=== PATIENT | female | born 1970 | race Caucasian/White ===

== ENCOUNTER 2016-08-15 08:00 | Observation (INO) | payer OTHER ==
[2016-08-14 13:59] VITALS: BMI 40.4
[2016-08-15] VITALS (24 sets, daily range): BP systolic 102–139; BP diastolic 53–98; PULSE 56–76; RESP 14–20; Ht 165.1 cm; Wt 109.0 kg
[~2016-08-15] VITALS: Ht 165.1 cm; Wt 109.0 kg
[~2016-08-15 08:00] MED LIST: CEFAZOLIN 1 GM INJ ONE
[2016-08-15] MEDS ORDERED: METF1000 PO (08:16)
[2016-08-15] MEDS ORDERED: CEFAZOLIN 2 GM/50 ML (PMX) 50 ML IVPB ONE (09:00)
[2016-08-15] MEDS: SOD CHLORIDE 0.9% 1,000 ML IV SCH (09:00)
[2016-08-15 09:32] LABS: ADD SCAN DIFF NO
--- NOTE | 2016-08-15 09:33 | RADRPT ---
PROCEDURE: XR Chest. CLINICAL INDICATION: Preoperative TECHNIQUE: Single frontal view of the chest was obtained COMPARISON: None FINDINGS: The heart and mediastinum are within normal limits. The lungs are clear. There is mild elevation of the right diaphragm. There is no pleural effusion or pneumothorax. RPTAT: AA IMPRESSION: No acute disease. .Henrique Cheng MD, MD Date Time Electronically viewed and signed by .Henrique Cheng MD, on 08/15/2016 09:33 .S/
[2016-08-15 09:41] LABS: BASOPHILS % 0.5 % (0.0-2.0); EOSINOPHILS # 0.1 10^3/ul (0.0-0.5); EOSINOPHILS % 1.8 % (0.0-7.0); HEMATOCRIT 35.7 % (37.0-47.0); HEMOGLOBIN 11.1 g/dl (12.0-16.0); LYMPHOCYTES # 2.2 10^3/ul (0.8-2.9); LYMPHOCYTES % 30.7 % (15.0-51.0); MEAN CORPUSCULAR HEMOGLOBIN 25.5 pg (29.0-33.0); MEAN CORPUSCULAR HGB CONC 31.1 g/dl (32.0-37.0); MEAN CORPUSCULAR VOLUME 82.1 fl (82.0-101.0); MEAN PLATELET VOLUME 10.7 fl (7.4-10.4); MONOCYTE # 0.5 10^3/ul (0.3-0.9); NEUTROPHIL # 4.4 10^3/ul (1.6-7.5); NEUTROPHILS % 59.7 % (39.0-77.0); PLATELET COUNT 336 10^3/UL (140-415); RED BLOOD COUNT 4.35 10^6/ul (4.20-5.40); RED CELL DISTRIBUTION WIDTH 15.1 % (11.5-14.5); WHITE BLOOD COUNT 7.3 10^3/ul (4.8-10.8)
[2016-08-15 09:48] LABS: INR 0.97; PROTIME 12.9 Sec (12.2-14.2)
[2016-08-15 09:49] LABS: PARTIAL THROMBOPLASTIN TIME 34.3 Sec (25.0-35.0)
[2016-08-15 09:53] LABS: POTASSIUM 3.9 mmol/L (3.5-5.1)
[2016-08-15 10:00] LABS: CALCIUM 9.2 mg/dl (8.4-10.2); CREATININE 0.49 mg/dl (0.44-1.00)
[2016-08-15] MEDS ORDERED: ISOSULFAN BLUE 1% 5 ML INJ SC ONE (10:58)
[2016-08-15] MEDS ORDERED: FENTAnyl 50 MCG/ML VIAL ONE (11:15)
[2016-08-15] MEDS ORDERED: GLYCOPYRROLATE 0.4 MG INJ ONE (11:41)
[2016-08-15] MEDS ORDERED: ROCURONIUM 50 MG INJ ONE (11:42)
[2016-08-15] MEDS ORDERED: NEOSTIGMINE 3 MG/3 ML SYRINGE ONE (11:42)
[2016-08-15] MEDS ORDERED: SUCCINYLCHOLINE CHLORIDE 100 MG/5 ML SYG IV ONE (11:42)
[2016-08-15] MEDS ORDERED: PROPOFOL 40 ML ONE (11:42)
[2016-08-15] MEDS ORDERED: LIDOCAINE 2% (SDV) 5 ML INJ ONE (11:42)
[2016-08-15] MEDS ORDERED: DIPHENHYDRAMINE 50 MG INJ IV PRN (12:00)
[2016-08-15] MEDS ORDERED: HYDROmorphONE (0.2 MG/ML) 10ML SYG IV PRN ×2 (12:00)
[2016-08-15] MEDS ORDERED: ONDANSETRON 4 MG INJ IV PRN ×2 (12:00→13:30)
[2016-08-15] MEDS ORDERED: METOCLOPRAMIDE 10 MG INJ IV PRN (12:00)
[2016-08-15] MEDS ORDERED: hydrALAzine 20 MG INJ ONE (12:12)
[2016-08-15] MEDS: MEPERIDINE 25 MG INJ IV PRN ×2 (13:09→13:16)
[2016-08-15] MEDS: FENTAnyl 50 MCG/ML VIAL IV PRN ×4 (13:10→13:33)
--- NOTE | 2016-08-15 13:17 | OPR ---
DATE OF OPERATION: 08/15/2016 PREOPERATIVE DIAGNOSIS: Invasive cancer, left breast. POSTOPERATIVE DIAGNOSIS: Invasive cancer, left breast. OPERATION PERFORMED: Needle-directed left partial mastectomy and axillary dissection utilizing sent inel lymph node technique. ANESTHESIA: General. ANESTHESIOLOGIST: Dr. Rodriguez. SURGEON: Edgar Moore MD ASSISTANTS: Dr. Johnson and Tyrone Danielle MD INDICATIONS FOR PROCEDURE: The patient is a 45-year-old female who underwent surveillance mammograp hy and was found to have suspicious lesion in her left breast. Subsequent workup including ultrasou nd and biopsy revealed an invasive cancer. Tumor markers revealed it was ER positive but MO, and HE R-2 negative. The patient was counseled as to need for surgery. She consented and was scheduled fo r surgery. DESCRIPTION OF PROCEDURE: On the morning of surgery, the patient presented to [facility] where she underwent localization of the lesion performed by attending radiologis t, Dr. Marla Morris. Subsequently, she was brought to the operating theater, placed under genera l endotracheal tube anesthesia. The left breast and axillary region were prepped and draped in the usual sterile fashion. The previously placed localization wire was in the upper outer quadrant of t he left breast. Approximately 4 mL of 1% Lymphazurin blue dye were injected peritumorally. The xenia ast was gently massaged for approximately 10 minutes. Subsequently, a 3 to 4 cm incision was made i n the left axillary hairline. Subcutaneous tissue was dissected with cautery down through the clavi pectoral fascia. A dye-stained lymphatic was identified and traced to an enlarged lymph node. Ther e were additional enlarged nodes in this area. Therefore, decision was made to perform a level 1 di ssection with blunt dissection along the chest wall. The long thoracic nerve was identified and kep t out of harm's way. More superiorly, the axillary vein and thoracodorsal neurovascular bundle were identified and kept out of harm's way. Node bearing tissue between the long thoracic nerve and tho racodorsal nerve was meticulously harvested using the LigaSure device. Specimen was removed. The s entinel lymph node was marked with a suture and attending pathologist, Dr. Wilton Roca and perfo rmed intraoperative cytology which was negative for definite malignancy. There were several additio nal lymph nodes in the specimen. Dr. Moore made the decision that it was not indicated to attempt t o remove more tissue. Therefore, the wound was irrigated. Minimal bleeding was controlled with cau sarah. A #10 flat Shivam-Livingston drain was then placed through the left mid axillary line. It was cu t to size and laid within the axilla. The drain was sewn in place with 2-0 nylon suture in the mari dard fashion and the skin was reapproximated with a 4-0 Vicryl suture in subcuticular fashion. Attention was then directed to performing the partial mastectomy. A curvilinear incision was made i n the upper outer quadrant in the region of the previously placed localization wire. Subcutaneous t issue was dissected with cautery. The skin edges were elevated with skin hooks and wide circumferen tial dissection of the tissue associated with the wire then took place, taking great care to ensure adequate margin. Specimen was then elevated, transected, oriented, and sent for radiographic confir mation of capture. Capture was confirmed. Specimen was then sent for permanent pathologic analysis . The wound was irrigated. Minimal bleeding was controlled with cautery, and the skin was then alfonso sed with a deep dermal layer of 4-0 Vicryl sutures, followed by final skin approximation with 5-0 PD S in subcuticular fashion. Benzoin and Steri-Strips were applied. Patient tolerated the procedure well. The estimated blood loss was approximately 30 mL. There were no complications and the patien t was transported in stable condition to the recovery room where circumferential compression dressin g was applied. Dictated By: EDGAR MOORE MD TL/MARTHA Conf#: [id number] DID#: [id number] CC: Marla Morris MD;*EndCC*
[2016-08-15] MEDS ORDERED: D5W-0.45 NACL + KCL 20 MEQ 1,000 ML IV SCH (13:30)
[2016-08-15] MEDS ORDERED: morphine 2 MG INJ IV PRN (13:30)
[2016-08-15] MEDS ORDERED: GLUCOSE GEL 15 GRAM TUBE PO PRN ×2 (17:00)
[2016-08-15] MEDS ORDERED: DEXTROSE 50% 50 ML SYRINGE IV PRN ×2 (17:00)
[2016-08-15] MEDS ORDERED: GLUCAGON 1 MG INJ IM PRN (17:00)
[2016-08-15] MEDS ORDERED: GLUCOSE GEL 15 GRAM TUBE BUCCAL PRN (17:00)
--- NOTE | 2016-08-15 17:27 | HP ---
DATE OF ADMISSION: 08/15/2016 CHIEF COMPLAINT AND HISTORY OF PRESENT ILLNESS: The patient is a 45-year-old female with history o f diabetes type 2 was noted to have a suspicious lesion, left breast on screening mammography and fajardo bsequent biopsy revealed invasive cancers. The patient was seen by Dr. Moore as an outpatient and b rought into hospital and underwent left partial mastectomy and axillary dissection. The patient did have significant postoperative pain; therefore, patient is being admitted for further evaluation an d management. The patient denies any headache, dizziness, syncope. No history of cough. No histo ry of shortness of breath, no history of abdominal pain, nausea, vomiting, or diarrhea. No history of dysuria or hematuria, no history of acute joint pain or any skin rash. No history of focal weak ness. REVIEW OF SYSTEMS: Rest of review of systems unremarkable. PAST MEDICAL HISTORY: As stated above. SOCIAL HISTORY: No smoking, no alcohol. FAMILY HISTORY: Positive for breast cancer in her sister. MEDICATIONS PRIOR TO ADMISSION: Metformin 1000 mg twice a day. PAST SURGICAL HISTORY: Status post right shoulder surgery, details not available. PHYSICAL EXAMINATION: GENERAL: The patient is conscious, awake, alert, fairly oriented. VITAL SIGNS: Temperature 97.9, pulse 60, blood pressure 115/60, O2 saturation 97% on 2 liters nasal cannula, respirations 20. HEENT: Atraumatic, normocephalic. Conjunctivae and lids normal. Oropharynx clear. NECK: Supple. No mass, no thyromegaly. LUNGS: Clear to auscultation. CARDIOVASCULAR: S1, S2 normal. No murmur, gallop, or rub. ABDOMEN: Soft, nondistended, nontender. Bowel sounds heard. EXTREMITIES: No leg edema. Pedal pulses palpable. No clubbing, no cyanosis. NEUROLOGIC: The patient is awake, alert, fairly oriented with no gross focal deficit. LABORATORY DATA: This morning, sodium 140, potassium 3.9, BUN 10, creatinine 0.9, glucose 103, calc ium 9.2. WBC 7.3, hemoglobin 11.1, platelets 336. IMPRESSION: 1. Left breast cancer status post left partial mastectomy and axillary dissection. 2. Type 2 diabetes mellitus. PLAN: Patient admitted on medical floor. Patient will be started on clear liquid diet, which will be advanced as tolerated. Will give IV fluid and SCD for DVT prophylaxis, Tylenol, Darby and IV mor phine for pain control. We will also resume metformin and will do Accu-Chek a.c. and at bedtime wit h mild scale. If the patient continues to do well, she will be discharged home tomorrow. Dictated By: RAYMUNDO HUFFMAN/MARTHA Conf#: [id number] DID#: [id number]
[2016-08-15] MEDS: INSULIN ASPART [NOVOLOG] 3 ML PEN SC SCH ×2 (17:32→21:00)
[2016-08-15] MEDS: metFORMIN 500 MG TAB PO SCH (17:40)
[2016-08-15] MEDS: 1/2 NS + KCL 20 MEQ 1,000 ML IV SCH (17:46)
[2016-08-15] MEDS ORDERED: ACETAMINOPHEN 325 MG TAB PO PRN (18:00)
[2016-08-15] MEDS: HYDROCODONE/APAP (5/325) TAB GTB PRN (18:44)
[2016-08-16] VITALS: BP 121/70; RESP 19
[2016-08-16] MEDS ORDERED: ACCU-CHEK XX SCH (02:00)
[2016-08-16] MEDS: 1/2 NS + KCL 20 MEQ 1,000 ML IV SCH (04:18)
[2016-08-16] MEDS: HYDROCODONE/APAP (5/325) TAB GTB PRN ×3 (04:25→14:56)
[2016-08-16] MEDS: INSULIN ASPART [NOVOLOG] 3 ML PEN SC SCH ×2 (07:50→11:40)
--- NOTE | 2016-08-16 07:50 | CONS ---
Date/Time of Note Date/Time of Note DATE: 08/16/16 TIME: 07:45 Consultation Date/Type/Reason Admit Date/Time Aug 15, 2016 at 13:31 Initial Consult Date 08/16/16 Type of Consultation: Anesthesiology Reason for Consultation Anesthesia Follow up 24 HR Interval Summary Free Text/Dictation Pt seen and examined at bedside is POD #1 for Left breast partial mastectomy. Pt was admitted post-op for monitoring. Pt states she has minimal pain and is overall doing well with adequate pain control and ambulation. No N/V/D/ROSS/ Urinary incontinence. Will follow up PRN. Constitutional: improved, no complaints Exam/Review of Systems Vital Signs Vitals Vital Signs Date Time Temp Pulse Resp B/P Pulse Ox O2 Delivery O2 Flow Rate FiO2 08/16/16 00:00 98.0 73 19 121/70 97 08/15/16 17:05 Room Air 08/15/16 14:00 2.0 Intake and Output 08/15/16 08/15/16 08/16/16 15:00 23:00 07:00 Intake Total 1900 ml 300 ml 1910 ml Output Total 15 ml 744 ml Balance 1885 ml 300 ml 1166 ml Results Result Diagram: 08/15/16 0855 08/15/16 0855 Results 24 hrs Laboratory Tests Test 08/15/16 08:55 08/15/16 09:07 08/15/16 17:20 08/15/16 21:18 White Blood Count 7.3 Red Blood Count 4.35 Hemoglobin 11.1 L Hematocrit 35.7 L Mean Corpuscular Volume 82.1 Mean Corpuscular Hemoglobin 25.5 L Mean Corpuscular Hemoglobin Concent 31.1 L Red Cell Distribution Width 15.1 H Platelet Count 336 Mean Platelet Volume 10.7 H Neutrophils % 59.7 Lymphocytes % 30.7 Monocytes % 7.0 Eosinophils % 1.8 Basophils % 0.5 Nucleated Red Blood Cells % 0.0 Neutrophils # 4.4 Lymphocytes # 2.2 Monocytes # 0.5 Eosinophils # 0.1 Basophils # 0.0 Nucleated Red Blood Cells # 0.0 Prothrombin Time 12.9 Prothrombin Time Ratio 1.0 INR International Normalized Ratio 0.97 Activated Partial Thromboplast Time 34.3 Sodium Level 140 Potassium Level 3.9 Chloride Level 105 Carbon Dioxide Level 27 Anion Gap 12 Blood Urea Nitrogen 10 Creatinine 0.49 Glucose Level 103 Calcium Level 9.2 Bedside Glucose 101 107 102 Medications Medications Current Medications Morphine Sulfate (morphine) 2 mg Q1H PRN IV PAIN; Start 08/15/16 at 13:30 Ondansetron HCl 4 mg 4 mg Q4H PRN IV NAUSEA AND/OR VOMITING; Start 08/15/16 at 13:30 Potassium Chloride/Dextrose/ Sod Cl 1,000 ml @ 120 mls/hr Q8H20M IV ; Start at 13:30 Potassium Chloride/Sodium Chloride (1/2 NS + KCl 20 Meq) 1,000 ml @ 75 mls/hr [id number] IV Last administered on 08/16/16 04:18; Admin Dose 75 MLS/HR; Start at 17:00 Diagnostic Test (Pha) (Accu-Chek) 1 ea 02 XX ; Start 08/16/16 at 02:00 Miscellaneous Information 1 ea NOTE XX ; Start 08/15/16 at 17:00 Glucose (Glutose) 15 gm Q15M PRN PO DECREASED GLUCOSE; Start 08/15/16 at 17:00 Glucose (Glutose) 22.5 gm Q15M PRN PO DECREASED GLUCOSE; Start 08/15/16 at 17: 00 Dextrose (D50w Syringe) 25 ml Q15M PRN IV DECREASED GLUCOSE; Start 08/15/16 at 17:00 Dextrose (D50w Syringe) 50 ml Q15M PRN IV DECREASED GLUCOSE; Start 08/15/16 at 17:00 Glucagon (Glucagen) 1 mg Q15M PRN IM DECREASED GLUCOSE; Start 08/15/16 at 17:00 Glucose (Glutose) 15 gm Q15M PRN BUCCAL DECREASED GLUCOSE; Start 08/15/16 at 17 :00 Acetaminophen (Tylenol Tab) 650 mg Q4H PRN PO PAIN AND OR ELEVATED TEMP; Start 08/15/16 at 18:00 Acetaminophen/ Hydrocodone Bitart ([place] (5/325)) 1 tab Q4H PRN GTB PAIN LEVEL 4-6 Last administered on 08/16/16 04:25; Admin Dose 1 TAB; Start 08/15/16 at 18: 00 Influenza Virus Vaccine (Fluzone) 0.5 ml ONCE ONCE IM* ; Start 08/17/16 at 09:00 ; Stop 08/17/16 at 09:01 DELON HOPSON Aug 16, 2016 07:50
[2016-08-16 07:56] VITALS: BP 114/63; RESP 16
[2016-08-16] MEDS: SOD CHLORIDE 0.9% 1,000 ML IV SCH (09:02)
[2016-08-16] MEDS: metFORMIN 500 MG TAB PO SCH (09:03)
--- NOTE | 2016-08-16 12:45 | PN ---
Date/Time of Note Date/Time of Note DATE: 08/16/16 TIME: 12:44 Assessment/Plan VTE Prophylaxis VTE Prophylaxis Intervention: other Lines/Catheters IV Catheter Type (from Nrsg): Peripheral IV Assessment/Plan Chief Complaint/Hosp Course 1) left breast cancer - s/p mastectomy - further treatment per surgery Problems: Subjective 24 Hr Interval Summary Free Text/Dictation Patient has no complaints Exam/Review of Systems Vital Signs Vitals Vital Signs Date Time Temp Pulse Resp B/P Pulse Ox O2 Delivery O2 Flow Rate FiO2 08/16/16 07:56 97.5 56 16 114/63 100 08/15/16 17:05 Room Air 08/15/16 14:00 2.0 Intake and Output 08/15/16 08/15/16 08/16/16 15:00 23:00 07:00 Intake Total 1900 ml 300 ml 1910 ml Output Total 15 ml 744 ml Balance 1885 ml 300 ml 1166 ml Exam Constitutional: well developed Head: atraumatic, normocephalic Neck: supple Respiratory: clear to auscultation Cardiovascular: regular rate and rhythm Gastrointestinal: non-tender, soft Extremities: normal pulses Results Result Diagram: 08/15/16 0855 08/15/16 0855 Results 24 hrs Laboratory Tests Test 08/15/16 17:20 08/15/16 21:18 08/16/16 08:20 08/16/16 12:16 Bedside Glucose 107 102 87 74 Medications Medications Current Medications Morphine Sulfate (morphine) 2 mg Q1H PRN IV PAIN Last administered on 08/16/16 11:29; Admin Dose 2 MG; Start 08/15/16 at 13:30 Ondansetron HCl 4 mg 4 mg Q4H PRN IV NAUSEA AND/OR VOMITING; Start 08/15/16 at 13:30 Potassium Chloride/Sodium Chloride (1/2 NS + KCl 20 Meq) 1,000 ml @ 75 mls/hr [id number] IV Last administered on 08/16/16 04:18; Admin Dose 75 MLS/HR; Start at 17:00 Diagnostic Test (Pha) (Accu-Chek) 1 ea 02 XX ; Start 08/16/16 at 02:00 Miscellaneous Information 1 ea NOTE XX ; Start 08/15/16 at 17:00 Glucose (Glutose) 15 gm Q15M PRN PO DECREASED GLUCOSE; Start 08/15/16 at 17:00 Glucose (Glutose) 22.5 gm Q15M PRN PO DECREASED GLUCOSE; Start 08/15/16 at 17: 00 Dextrose (D50w Syringe) 25 ml Q15M PRN IV DECREASED GLUCOSE; Start 08/15/16 at 17:00 Dextrose (D50w Syringe) 50 ml Q15M PRN IV DECREASED GLUCOSE; Start 08/15/16 at 17:00 Glucagon (Glucagen) 1 mg Q15M PRN IM DECREASED GLUCOSE; Start 08/15/16 at 17:00 Glucose (Glutose) 15 gm Q15M PRN BUCCAL DECREASED GLUCOSE; Start 08/15/16 at 17 :00 Acetaminophen (Tylenol Tab) 650 mg Q4H PRN PO PAIN AND OR ELEVATED TEMP; Start 08/15/16 at 18:00 Acetaminophen/ Hydrocodone Bitart ([place] (5/325)) 1 tab Q4H PRN GTB PAIN LEVEL 4-6 Last administered on 08/16/16t 11:29; Admin Dose 1 TAB; Start 08/15/16 at 18: 00 Influenza Virus Vaccine (Fluzone) 0.5 ml ONCE ONCE IM* ; Start 08/17/16 at 09:00 ; Stop 08/17/16 at 09:01 AMADEO LANDIN Aug 16, 2016 12:45
[2016-08-16] MEDS ORDERED: HYDR-906 PO (16:21)
--- NOTE | 2016-08-16 17:24 | PN ---
DATE: 08/16/2016 SUBJECTIVE: Feels okay. No complaint. The patient has had left partial mastectomy with axillary d issection. OBJECTIVE: VITAL SIGNS: Temperature 97.5, pulse rate 66, respirations 16, blood pressure 104/63, saturation 10 0% on room air. Shivam-Livingston drain has drained 54 mL in 24 hours, serosanguineous fluid. ASSESSMENT: The patient is 45 years old with invasive cancer of the left breast. partial mastectomy with axillary dissection. Shivam-Livingston is in place in the axilla. The patient is feeling okay, h as tolerated diet and has been walking around. Shivam-Livingston is draining serosanguineous fluid. PLAN: The patient can be discharged home today with pain medication and instructions on how to empt y the Shivam-Livingston and how to measure it. The patient to be followed by Dr. Moore in his office. The patient to call the office and make an appointment. Dictated By: ORLANDO WHITE MD PS/MARTHA Conf#: [id number] DID#: [id number]
[2016-08-17] MEDS ORDERED: INFLUENZA VIRUS VACCINE 0.5 ML (DISPENSING) IM* ONE (09:00)
== END 2016-08-16 16:40 | disposition home or self-care (01) ==
LOC: SDS 08:00 → INTOOBSV 13:31 → OBSVTOIN 13:31 → SDS 13:31 → REC 13:31 → MS1 14:20
PROVIDERS: ADMIT Surgery Surgical Oncology; ATTEND Surgery Surgical Oncology
DX: C50.412 Malignant neoplasm of upper-outer quadrant of left female breast (principal); Z17.0 Estrogen receptor positive status [ER+]; N60.12 Diffuse cystic mastopathy of left breast; E11.9 Type 2 diabetes mellitus without complications; Z79.84 Long term (current) use of oral hypoglycemic drugs; I10 Essential (primary) hypertension; E66.01 Morbid (severe) obesity due to excess calories; Z68.41 Body mass index [BMI] 40.0-44.9, adult; Z80.3 Family history of malignant neoplasm of breast
CPT/HCPCS: 19301; 38525; 38900; 71010; 80048; 82962; 84703; 85025; 85610; 85730; 88307; 88313; 96374; J0330; J0690; J1815; J2175; J2270; J2405; J2710; J3010; J3480; J7030; Z7500; Z7512; Z7610; 99217; G0378; J0360; Q9968

== ENCOUNTER 2017-05-21 20:12 | Inpatient (IN) | END 2017-05-22 15:20 | disposition home or self-care (01) | DRG 313 ==

== ENCOUNTER → 2017-06-09 | Outpatient (CLI) | END | disposition home or self-care (01) ==

== ENCOUNTER 2018-07-15 07:35 | Observation (INO) | payer OTHER ==
[~2018-07-15] VITALS: Ht 165.1 cm; Wt 113.3 kg
[2018-07-15] VITALS (19 sets, daily range): BP systolic 120–143; BP diastolic 62–79; PULSE 70–94; RESP 12–20; Ht 165.1 cm; Wt 113.3 kg
[~2018-07-15 07:35] MED LIST changes: +ASPI-817 PO; -CEFAZOLIN 1 GM INJ ONE; +CEFAZOLIN 2 GM/50 ML (PMX) 50 ML IVPB ONE; +HYDR-4011 PO; +LISI2.5T59 PO; +METF100010 PO; +SOD CHLORIDE 0.9% 1,000 ML IV SCH; +TAMO20TA PO
[2018-07-15] MEDS ORDERED: GLIP10TA14 PO (10:24)
[2018-07-15] MEDS ORDERED: NOL20 PO (10:25)
[2018-07-15] MEDS ORDERED: LOSA25TA12 PO (10:25)
[2018-07-15] MEDS ORDERED: METF100010 PO (10:26)
[2018-07-15] MEDS ORDERED: DESFLURANE 15 MIN ONE (11:40)
--- NOTE | 2018-07-15 11:46 | PREAC ---
Date/Time of Note Date/Time of Note DATE: 07/15/18 TIME: 11:44 Anesthesia Eval and Record Evaluation Time Pre-Procedure Interview DATE: 07/15/18 TIME: 11:44 Age 47 Sex female NPO: 8 hrs Preoperative diagnosis cholelithiasis Planned procedure laparoscopic possible open cholecystectomy Past Medical History Past Medical History: Includes Cardio: HTN, Dyslipidemia Endo: Diabetes GI: Morbid obesity (bmi 41) Heme: Other (hx breast cancer s/p surgery) Surgery & Anesthesia Issues No known issue Meds Anticoagulation: No Beta Stacie within 24 hr: No Reason Beta Stacie not given: Pt. not on B-Stacie Reported Medications Metformin Hcl* (Metformin Hcl*) 1,000 Mg Tablet, 1000 MG PO WITH BREAKFAST DINNE, #60 TAB 07/15/18 Losartan Potassium* (Losartan Potassium*) 25 Mg Tablet, 25 MG PO DAILY, TAB 07/15/18 Tamoxifen Citrate* (Tamoxifen Citrate*) 20 Mg Tab, 20 MG PO DAILY, TAB 07/15/18 Glipizide* (Glipizide*) 10 Mg Tablet, 10 MG PO BID, TAB 07/15/18 Discontinued Reported Medications Tamoxifen Citrate (Tamoxifen Citrate) 20 Mg Tablet, 20 MG PO QHS, TAB 05/21/17 Lisinopril* (Lisinopril*) 2.5 Mg Tablet, 2.5 MG PO DAILY, #30 TAB 05/21/17 Hydrocodone/Acetaminophen ([place] 5-325 Tablet) 1 Each Tablet, 1 EACH PO Q6 PRN for PAIN, #30 TAB 08/16/16 Metformin Hcl* (Metformin Hcl*) 1,000 Mg Tablet, 1000 MG PO WITH BREAKFAST DINNE, #30 TAB 08/15/16 Discontinued Scripts Aspirin* (Aspirin* EC) 81 Mg Tablet.dr, 81 MG PO DAILY for 30 Days, #30 Prov:LYNETTE DOWELL 05/22/17 Current Medications Sodium Chloride 1,000 ml @ 75 mls/hr [id number] IV ; Start 07/15/18 at 07:00 Meds reviewed: Yes Allergies Coded Allergies: No Known Allergy (Unverified , 07/15/18) Allergies Reviewed: Yes Labs/Studies Labs Reviewed: Reviewed by anesthesiologist test: Negative Studies: ECG Pre-procedure Exam Last vitals Vital Signs Date Temp Pulse Resp B/P (MAP) Pulse Ox O2 O2 Flow FiO2 Time Delivery Rate 07/15/18 98.2 77 16 120/79 97 Room Air 10:53 (93) Airway: Adequate mouth opening, Adequate thyromental dist Mallampati: Mallampati II Teeth: Normal Lung: Normal Heart: Normal ASA Physical Status ASA physical status: 3 Emergency: None Planned Anesthetic General/MAC: ETT Planned Pain Management Parenteral pain med, Local by surgeon Pre-operative Attestations Prior to commencing anesthesia and surgery, the patient was re-evaluated, there was verification of: *The patient's identity *The results of appropriate recent lab work and preoperative vital signs *The above evaluation not changing prior to induction *Anesthetic plan, risk benefits, alternative and complications discussed with patient/family; questions answered; patient/family understands, accepts and wishes to proceed. ALPESH BRYANT Jul 15, 2018 11:46
[2018-07-15] MEDS ORDERED: CEFAZOLIN 1 GM INJ ONE ×2 (11:47→13:43)
[2018-07-15] MEDS ORDERED: LIDOCAINE 2% (SDV) 5 ML INJ ONE (11:47)
[2018-07-15] MEDS ORDERED: MIDAZOLAM 1 MG/ML 2 ML INJ ONE (11:47)
[2018-07-15] MEDS ORDERED: ROCURONIUM 50 MG INJ ONE (11:47)
[2018-07-15] MEDS ORDERED: PROPOFOL 20 ML ONE (11:47)
[2018-07-15] MEDS ORDERED: FENTAnyl 50 MCG/ML VIAL ONE ×2 (11:48→13:46)
[2018-07-15] MEDS ORDERED: SUCCINYLCHOLINE CHLORIDE 100 MG/5 ML SYG IV ONE (11:49)
[2018-07-15] MEDS ORDERED: ONDANSETRON 4 MG INJ IV PRN ×2 (12:00→15:00)
[2018-07-15] MEDS ORDERED: HYDROmorphONE 1 MG/5 ML IV SYRINGE IV PRN ×3 (12:00)
[2018-07-15] MEDS ORDERED: OXYCODONE/ACETAMINOPHEN (5/325) TAB PO PRN ×2 (12:00)
[2018-07-15] MEDS ORDERED: LABETALOL HCL 20MG INJ IV PRN (12:00)
[2018-07-15] MEDS ORDERED: MIDAZOLAM 1 MG/ML 2 ML INJ IV PRN (12:00)
[2018-07-15] MEDS ORDERED: MEPERIDINE 25 MG INJ IV PRN (12:00)
[2018-07-15] MEDS ORDERED: ROPIVACAINE 0.5 % 30 ML VIAL ONE (13:24)
[2018-07-15] MEDS ORDERED: ONDANSETRON 4 MG INJ ONE (13:51)
[2018-07-15] MEDS ORDERED: FAMOTIDINE 20 MG INJ ONE (13:51)
[2018-07-15] MEDS ORDERED: SUGAMMADEX SODIUM 200 MG/2 ML VIAL IV ONE (14:44)
[2018-07-15] MEDS ORDERED: D5W-0.45 NACL + KCL 20 MEQ 1,000 ML IV SCH (14:56)
--- NOTE | 2018-07-15 14:56 | SIPON ---
Date/Time of Note Date/Time of Note DATE: 07/15/18 TIME: 14:55 Operative Report Preoperative Diagnosis Symptomatic cholelithiasis Postoperative Diagnosis Same Operation/Procedure Performed Laparoscopic cholecystectomy Surgeon see signature line assistant boys track coach Dr Johnson Anesthesia: general Estimated blood loss: 10 - 50 ml's Transfusion Required none Specimen Gallbladder Grafts/Implants none Complications none RAFIA AUGUSTINE MD Jul 15, 2018 14:56
[2018-07-15] MEDS ORDERED: HYDROCODONE/APAP (5/325) TAB PO PRN (15:00)
[2018-07-15] MEDS ORDERED: morphine 2 MG INJ IV PRN (15:00)
[2018-07-15] MEDS ORDERED: ACETAMINOPHEN 1000MG/100ML IV 100 ML IVPB PRN (15:00)
--- NOTE | 2018-07-15 15:06 | PAC ---
Date/Time of Note Date/Time of Note DATE: 07/15/18 TIME: 15:05 Post-Anesthesia Notes Post-Anesthesia Note Last documented vital signs Vital Signs Date Temp Pulse Resp B/P (MAP) Pulse Ox O2 O2 Flow FiO2 Time Delivery Rate 07/15/18 99.1 70 15 135/65 100 15:05 07/15/18 77 16 120/79 97 Room Air 10:53 (93) Activity: WNL Respiratory function: WNL Cardiovascular function: WNL Mental status: Baseline Pain reasonably controlled: Yes Hydration appropriate: Yes Nausea/Vomiting absent: Yes MI IKM DO Jul 15, 2018 15:06
--- NOTE | 2018-07-15 16:28 | OPR ---
DATE OF OPERATION: 07/15/2018 PREOPERATIVE DIAGNOSIS: Symptomatic cholelithiasis. POSTOPERATIVE DIAGNOSIS: Symptomatic cholelithiasis. OPERATION PERFORMED: Laparoscopic cholecystectomy. ANESTHESIA: General. ANESTHESIOLOGIST: Dr. Rodriguez. SURGEON: Edgar Moore MD POLITICAL REPORTER: Anoop White MD INDICATIONS FOR PROCEDURE: The patient is a 47-year-old female well known to me. I previously treat ed her for breast cancer. She presented with right upper quadrant pain associated with fatty food in take. Ultrasound confirmed cholelithiasis. She was counseled as to the benefit of cholecystectomy. She consented and was scheduled for surgery. DESCRIPTION OF PROCEDURE: The patient was brought to the operating theater, placed under general ane sthesia. The abdomen was prepped and draped in usual sterile fashion. Approximately 2 cm incision w as made in the midline just above the umbilicus. Subcutaneous tissue was dissected with cautery down to the anterior rectus sheath, 0 Vicryl stay sutures were placed on either side of the linea alba. The linea alba was incised and the abdomen was entered without difficulty. Gary trocar was then pl aced in the abdomen, was insufflated to a pressure of approximately 14 mmHg with carbon dioxide. Lap aroscope was introduced. Attention was directed to the right upper quadrant where a fatty liver was identified. The omentum was overlying the gallbladder. The 3 accessory ports were then placed under direct vision in the standard fashion. A Kitner was used to gently sweep the omentum away from the gallbladder which allowed good visualization of the gallbladder to further facilitate visualization. The patient was put in reverse Trendelenburg position and the table was airplaned with the right ana e. Through the lateral port sites, the gallbladder was grasped at the fundus and neck and retracted c ephalad and lateral. Peritoneum overlying the gallbladder was then incised both medially and lateral ly to facilitate mobilization of the triangle of Calot. With meticulous dissection, the cystic duct was isolated. Two clips were placed across it distally. It was then transected with endovascular GI A stapler. Subsequently, cystic artery was isolated, triply clipped and transected. The gallbladder was then dissected out of the gallbladder fossa using cautery. Prior to final transection, irrigati on and inspection took place. Minimal residual bleeding was controlled with cautery. Gallbladder wa s transected. The laparoscope was moved to the 12-mm subcostal port site, the gallbladder was remove d from the abdomen using gallbladder retrieval bag without difficulty. The Gary trocar was then pl aced back into the abdomen. The laparoscope was moved back to the umbilical port site. Final irriga tion and inspection took place. There was no evidence of bleeding. The 3 accessory ports were then removed under direct vision. Again, there was no evidence of bleeding. Finally, the umbilical port was removed. The midline umbilical fascia was reapproximated with 0 Prolene sutures in [id number] [id number] fashion. All wounds were irrigated with Betadine and skin incisions were reapproximated with skin klarissa. Patient tolerated procedure well. Estimated blood loss was 30 mL. There were no complica tions and the patient was transported in stable condition to the recovery room. Dictated By: EDGAR MOORE MD TL/NTS Conf#: [id number] DID#: [id number] CC: EDGAR MOORE MD; ANOOP WHITE MD;*EndCC*
[2018-07-15] MEDS ORDERED: GLUCOSE GEL 15 GRAM TUBE BUCCAL PRN (17:30)
[2018-07-15] MEDS ORDERED: GLUCOSE GEL 15 GRAM TUBE PO PRN ×2 (17:30)
[2018-07-15] MEDS ORDERED: DEXTROSE 50% 50 ML SYRINGE IV PRN ×2 (17:30)
[2018-07-15] MEDS ORDERED: GLUCAGON 1 MG INJ IM PRN (17:30)
[2018-07-15] MEDS: 1/2 NS + KCL 20 MEQ 1,000 ML IV SCH (17:57)
[2018-07-15] MEDS: INSULIN ASPART [NOVOLOG] 3 ML PEN SC SCH ×2 (17:57→21:01)
--- NOTE | 2018-07-15 18:37 | HP ---
DATE OF ADMISSION: 07/15/2018 CHIEF COMPLAINT AND HISTORY OF PRESENT ILLNESS: The patient is a 47-year-old female well known to me from previous admissions. The patient has type 2 diabetes mellitus, left-sided breast cancer status post left partial mastectomy and axillary resection back in 2016. The patient has subcutaneous subs equently got admitted back in 05/2017 due to atypical chest pain and then was seen by Dr. Collins fro m cardiac standpoint. The patient was supposed to do outpatient stress test. The patient subsequent ly went to see Dr. Moore for symptomatic gallstone. The patient had an ultrasound done of the abdome n done in 02/2018, which revealed cholelithiasis. The patient's preop evaluation was unremarkable. The patient was cleared for discharge. The patient prior to surgery was able to achieve 4 METS. The patient today underwent laparoscopic cholecystectomy. Postoperatively, she has significant abdomina l pain. The patient is being admitted for further evaluation and management. The patient denies his tory of chest pain. No history of shortness of breath. No history of headache. No history of dizzi ness, syncope. No history of focal weakness. No history of resting leg pain. No history of numbnes s, tingling or weakness in any extremity. REVIEW OF SYSTEMS: Other than postoperative pain, rest of the systems is unremarkable. PAST MEDICAL HISTORY: As stated above. SOCIAL HISTORY: No smoking, no alcohol. FAMILY HISTORY: Positive for breast cancer in her sister. MEDICATIONS PRIOR TO ADMISSION: 1. Glipizide. 2. Metformin. 3. Tamoxifen. 4. Losartan. ALLERGIES: NONE. PHYSICAL EXAMINATION GENERAL: Revealed the patient to be awake, alert, fairly oriented. VITAL SIGNS: Temperature 98.2, pulse 77, respirations 16, blood pressure 120/79, temperature 97% on room air. HEENT: No eye discharge or redness. Conjunctivae and lids are normal. Oropharynx is clear. NECK: No mass. CHEST: Fairly clear. CARDIOVASCULAR: S1, S2, normal. ABDOMEN: The patient is status post laparoscopic cholecystectomy. EXTREMITIES: No leg edema. NEUROLOGIC: The patient is awake, alert, fairly oriented with no gross deficit. LABORATORY DATA: WBC 4.5, hemoglobin 12.3, platelet 214. Glucose this morning was 104. Chemistry b ack in 05/2017: Sodium 142, potassium 4.8, BUN 10, creatinine 0.5. Coagulation profile was unremark able. The patient had a negative test and recent labs done just prior to the surgery on revealed a hemoglobin of 13.5, platelet 242, WBC 7.3. Albumin 3.8. Coagulation profile: P T, PTT were normal. AST 19, ALT 24. Creatinine 0.6, glucose 163, potassium 4.7, sodium 141, BUN 13. DIAGNOSTIC DATA: EKG: Sinus rhythm. IMPRESSION: 1. Symptomatic gallstone, status post laparoscopic cholecystectomy. 2. Hypertension. 3. Diabetes mellitus. 4. History of breast cancer, status post left partial mastectomy. TREATMENT PLAN: The patient will be admitted on medical floor. The patient will be started on clear liquid diet and will be advanced as tolerated. The patient will be started on Story and IV morphine for pain control. We will add Zofran for nausea, vomiting and Tylenol for mild pain and fever. We will use SCD for DVT prophylaxis. We will also start her on half NS with 20 mEq KCl. We will put he r on sliding scale for now. We will hold off on antihypertensive since her blood pressure is within acceptable range. Dictated By: RAYMUNDO KEITH MD AB/NTS Conf#: [id number] DID#: [id number] CC: RAFIA MOORE MD;*End*
[2018-07-16 02:08] VITALS: BP 114/57; PULSE 80; RESP 18
[2018-07-16] MEDS: INSULIN ASPART [NOVOLOG] 3 ML PEN SC SCH ×3 (08:00→17:19)
[2018-07-16] MEDS: 1/2 NS + KCL 20 MEQ 1,000 ML IV SCH ×2 (08:05→15:33)
[2018-07-16 08:34] VITALS: BP 130/75; PULSE 83; RESP 18
[2018-07-16] MEDS ORDERED: TAMOXIFEN 10 MG TAB PO SCH (09:00)
[2018-07-16] MEDS ORDERED: NON-FORMULARY/PATIENT OWN MED (Tamoxifen Citrate* 20 MG) PO SCH (09:00)
[2018-07-16] MEDS ORDERED: HYDR-4011 PO (11:25)
--- NOTE | 2018-07-16 11:27 | PDOCDIS ---
Discharge Instructions CONDITION [id number] Patient Condition: [id number] Stable HOME CARE INSTRUCTIONS: [id number] Diet Instructions: [id number] y Rest between Activity Avoid heavy lifting Do not Drive Do not operate Machinery Do not operate Power Tool Avoid Heavy Housework [id number] Bathing Restrictions: Knyqh2a Sponge Bath FOLLOW UP/APPOINTMENTS Follow-up Plan FU with Primary MD x 1 week FU with surgery as recommended Call 911 or go to the nearest hospital if symptoms get worse- patient verbalized understanding discharge instructions Spencer Estrada/staff SCHOOL/WORK RELEASE May return to School/Work on: Jul 22, 2018 GUADALUPE TREVINO Jul 16, 2018 11:27
--- NOTE | 2018-07-16 11:30 | DS ---
Date/Time of Note Date/Time of Note DATE: 07/16/18 TIME: 11:30 Discharge Summary Admission/Discharge Info Admit Date/Time Jul 15, 2018 at 14:58 Discharge Date/Time Home Meds Active Scripts Hydrocodone/Acetaminophen ([place] 5-325 Tablet) 1 Each Tablet, 1 EACH PO Q6, #10 TAB Prov:GUADALUPE TREVINO 07/16/18 Reported Medications Metformin Hcl* (Metformin Hcl*) 1,000 Mg Tablet, 1000 MG PO WITH BREAKFAST DINNE, #60 TAB 07/15/18 Losartan Potassium* (Losartan Potassium*) 25 Mg Tablet, 25 MG PO DAILY, TAB 07/15/18 Tamoxifen Citrate* (Tamoxifen Citrate*) 20 Mg Tab, 20 MG PO DAILY, TAB 07/15/18 Glipizide* (Glipizide*) 10 Mg Tablet, 10 MG PO BID, TAB 07/15/18 Discontinued Reported Medications Tamoxifen Citrate (Tamoxifen Citrate) 20 Mg Tablet, 20 MG PO QHS, TAB 05/21/17 Lisinopril* (Lisinopril*) 2.5 Mg Tablet, 2.5 MG PO DAILY, #30 TAB 05/21/17 Hydrocodone/Acetaminophen ([place] 5-325 Tablet) 1 Each Tablet, 1 EACH PO Q6 PRN for PAIN, #30 TAB 08/16/16 Metformin Hcl* (Metformin Hcl*) 1,000 Mg Tablet, 1000 MG PO WITH BREAKFAST DINNE, #30 TAB 08/15/16 Discontinued Scripts Aspirin* (Aspirin* EC) 81 Mg Tablet., 81 MG PO DAILY for 30 Days, #30 Prov:LYNETTE DOWELL 05/22/17 Follow-up Plan FU with Primary MD x 1 week FU with surgery as recommended Call 911 or go to the nearest hospital if symptoms get worse- patient verbalized understanding discharge instructions Dw Dr Estrada/staff Primary Care Provider [facility] Pending Labs Laboratory Tests Test 07/15/18 15:02 07/15/18 16:14 07/15/18 17:47 07/15/18 20:57 Bedside 155 204 197 208 Glucose mg/dL (70-220) mg/dL (70-220) mg/dL (70-220) mg/dL (70-220) Test 07/16/18 05:49 07/16/18 07:01 3/1/19 08:01 White Blood 12.1 Count 10^3/ul (4.8-10 .8) Red Blood 4.25 Count 10^6/ul (4.20-5 .40) Hemoglobin 12.8 g/dl (12.0-16.0 ) Hematocrit 38.9 % (37.0-47.0) Mean 91.5 Corpuscular fl (82.0-101.0) Volume Mean 30.1 Corpuscular pg (29.0-33.0) Hemoglobin Mean 32.9 Corpuscular g/dl (32.0-37.0 Hemoglobin Conc ) ent Red Cell 13.1 Distribution % (11.5-14.5) Width Platelet Count 249 10^3/UL (140-41 5) Mean Platelet 10.1 Volume fl (7.4-10.4) Immature 0.600 Granulocytes % % (0.001-0.429) Neutrophils % 78.1 % (39.0-77.0) Lymphocytes % 14.7 % (15.0-51.0) Monocytes % 6.0 % (0.0-11.0) Eosinophils % 0.4 % (0.0-7.0) Basophils % 0.2 % (0.0-2.0) Nucleated Red 0.0 Blood Cells % /100WBC (0.0-0. 0) Immature 0.070 Granulocytes # 10^3/ul (0.0-0. 031) Neutrophils # 9.4 10^3/ul (1.6-7. 5) Lymphocytes # 1.8 10^3/ul (0.8-2. 9) Monocytes # 0.7 10^3/ul (0.3-0. 9) Eosinophils # 0.1 10^3/ul (0.0-0. 5) Basophils # 0.0 10^3/ul (0.0-0. 1) Nucleated Red 0.0 Blood Cells # 10^3/ul (0.0-0. 0) Sodium Level 140 mmol/L (135-144 ) Potassium 4.7 Level mmol/L (3.5-5.1 ) Chloride Level 104 mmol/L (97-110) Carbon Dioxide 28 Level mmol/L (21-31) Anion Gap 8 (5-13) Blood Urea 11 mg/dl (7-20) Nitrogen Creatinine 0.47 mg/dl (0.44-1.0 0) Est Glomerular > 60 Filtrat mL/min (>60) Rate mL/min Glucose Level 138 mg/dl (70-220) Calcium Level 9.0 mg/dl (8.4-10.2 ) Total 0.3 Bilirubin mg/dl (0.2-1.3) Direct 0.00 Bilirubin mg/dl (0.00-0.2 0) Indirect 0.3 Bilirubin mg/dl (0-1.1) Aspartate Amino 42 IU/L (15-46) Transf (AST/SGO T) Alanine 31 IU/L (13-69) Aminotransferas e (ALT/SGPT) Alkaline 77 Phosphatase IU/L (42-121) Total Protein 6.7 g/dl (6.1-8.1) Albumin 3.5 g/dl (3.3-4.9) Globulin 3.20 g/dl (1.3-3.2) Albumin/Globuli 1.09 n Ratio Lab Scanned REFERENCE Report LAB [id number] Bedside 129 Glucose mg/dL (70-220) GUADALUPE TREVINO Jul 16, 2018 11:30
--- NOTE | 2018-07-16 13:53 | DS ---
Date/Time of Note Date/Time of Note DATE: 07/16/18 TIME: 13:52 Discharge Summary Admission/Discharge Info Admit Date/Time Jul 15, 2018 at 14:58 Discharge Date/Time Patient Condition: Stable Home Meds Active Scripts Hydrocodone/Acetaminophen ([place] 5-325 Tablet) 1 Each Tablet, 1 EACH PO Q6, #10 TAB Prov:GUADALUPE TREVINO 07/16/18 Reported Medications Metformin Hcl* (Metformin Hcl*) 1,000 Mg Tablet, 1000 MG PO WITH BREAKFAST DINNE, #60 TAB 07/15/18 Losartan Potassium* (Losartan Potassium*) 25 Mg Tablet, 25 MG PO DAILY, TAB 07/15/18 Tamoxifen Citrate* (Tamoxifen Citrate*) 20 Mg Tab, 20 MG PO DAILY, TAB 07/15/18 Glipizide* (Glipizide*) 10 Mg Tablet, 10 MG PO BID, TAB 07/15/18 Discontinued Reported Medications Tamoxifen Citrate (Tamoxifen Citrate) 20 Mg Tablet, 20 MG PO QHS, TAB 05/21/17 Lisinopril* (Lisinopril*) 2.5 Mg Tablet, 2.5 MG PO DAILY, #30 TAB 05/21/17 Hydrocodone/Acetaminophen ([place] 5-325 Tablet) 1 Each Tablet, 1 EACH PO Q6 PRN for PAIN, #30 TAB 08/16/16 Metformin Hcl* (Metformin Hcl*) 1,000 Mg Tablet, 1000 MG PO WITH BREAKFAST DINNE, #30 TAB 08/15/16 Discontinued Scripts Aspirin* (Aspirin* EC) 81 Mg Tablet., 81 MG PO DAILY for 30 Days, #30 Prov:LYNETTE DOWELL 05/22/17 Follow-up Plan FU with Primary MD x 1 week FU with surgery as recommended Call 911 or go to the nearest hospital if symptoms get worse- patient verbalized understanding discharge instructions Dw Dr Estrada/staff Primary Care Provider [facility] Time spent on discharge: < 30 minutes Pending Labs Laboratory Tests Test 07/15/18 15:02 07/15/18 16:14 07/15/18 17:47 07/15/18 20:57 Bedside 155 204 197 208 Glucose mg/dL (70-220) mg/dL (70-220) mg/dL (70-220) mg/dL (70-220) Test 07/16/18 05:49 07/16/18 07:01 07/16/18 08:01 07/16/18 12:20 White Blood 12.1 Count 10^3/ul (4.8-10 .8) Red Blood 4.25 Count 10^6/ul (4.20-5 .40) Hemoglobin 12.8 g/dl (12.0-16.0 ) Hematocrit 38.9 % (37.0-47.0) Mean 91.5 Corpuscular fl (82.0-101.0) Volume Mean 30.1 Corpuscular pg (29.0-33.0) Hemoglobin Mean 32.9 Corpuscular g/dl (32.0-37.0 Hemoglobin Conc ) ent Red Cell 13.1 Distribution % (11.5-14.5) Width Platelet Count 249 10^3/UL (140-41 5) Mean Platelet 10.1 Volume fl (7.4-10.4) Immature 0.600 Granulocytes % % (0.001-0.429) Neutrophils % 78.1 % (39.0-77.0) Lymphocytes % 14.7 % (15.0-51.0) Monocytes % 6.0 % (0.0-11.0) Eosinophils % 0.4 % (0.0-7.0) Basophils % 0.2 % (0.0-2.0) Nucleated Red 0.0 Blood Cells % /100WBC (0.0-0. 0) Immature 0.070 Granulocytes # 10^3/ul (0.0-0. 031) Neutrophils # 9.4 10^3/ul (1.6-7. 5) Lymphocytes # 1.8 10^3/ul (0.8-2. 9) Monocytes # 0.7 10^3/ul (0.3-0. 9) Eosinophils # 0.1 10^3/ul (0.0-0. 5) Basophils # 0.0 10^3/ul (0.0-0. 1) Nucleated Red 0.0 Blood Cells # 10^3/ul (0.0-0. 0) Sodium Level 140 mmol/L (135-144 ) Potassium 4.7 Level mmol/L (3.5-5.1 ) Chloride Level 104 mmol/L (97-110) Carbon Dioxide 28 Level mmol/L (21-31) Anion Gap 8 (5-13) Blood Urea 11 mg/dl (7-20) Nitrogen Creatinine 0.47 mg/dl (0.44-1.0 0) Est Glomerular > 60 Filtrat mL/min (>60) Rate mL/min Glucose Level 138 mg/dl (70-220) Calcium Level 9.0 mg/dl (8.4-10.2 ) Total 0.3 Bilirubin mg/dl (0.2-1.3) Direct 0.00 Bilirubin mg/dl (0.00-0.2 0) Indirect 0.3 Bilirubin mg/dl (0-1.1) Aspartate Amino 42 IU/L (15-46) Transf (AST/SGO T) Alanine 31 IU/L (13-69) Aminotransferas e (ALT/SGPT) Alkaline 77 Phosphatase IU/L (42-121) Total Protein 6.7 g/dl (6.1-8.1) Albumin 3.5 g/dl (3.3-4.9) Globulin 3.20 g/dl (1.3-3.2) Albumin/Globuli 1.09 n Ratio Lab Scanned REFERENCE Report LAB [id number] Bedside 129 147 Glucose mg/dL (70-220) mg/dL (70-220) GUADALUPE TREVINO Jul 16, 2018 13:53
[2018-07-16 15:29] VITALS: BP 116/65; PULSE 90; RESP 18
[2018-07-16 18:04] VITALS: BP 118/65; PULSE 88; RESP 20
== END 2018-07-16 19:16 | disposition home or self-care (01) ==
LOC: SDS 07:35 → INTOOBSV 14:58 → REC 14:58 → PP2 16:50
PROVIDERS: ADMIT Surgery Surgical Oncology; ATTEND Surgery Surgical Oncology
DX: K80.10 Calculus of gallbladder with chronic cholecystitis without obstruction (principal); E11.9 Type 2 diabetes mellitus without complications; I10 Essential (primary) hypertension; Z85.3 Personal history of malignant neoplasm of breast
CPT/HCPCS: 47562; 80053; 82962; 85025; 88304; J0690; J1170; J1815; J2175; J2250; J2270; J2405; J2795; J3010; J3480; Z7500; Z7512; Z7610; G0378